=== PATIENT | male | born 1965 | race Two or more races ===

== ENCOUNTER 2018-07-04 09:08 | Emergency (ER) | payer OTHER, MEDICAID ==
[~2018-07-04] VITALS: Ht 180.3 cm; Wt 80.3 kg
[2018-07-04] MEDS ORDERED: [UNRECOGNIZED DRUG - OTHER] (09:35)
[2018-07-04] MEDS ORDERED: ABILIFY2 MG ORAL (09:35)
--- NOTE | 2018-07-04 10:00 | NUR ---
ED Nurse Note:pt. stoped taking his psych meds and c/o hearing voices, no SI present , A/Ox4 ambulatory seen by ER
--- NOTE | 2018-07-04 10:08 | NUR ---
ED Nurse Note:blood and urine sent to labs, personal belongings placed in locker #2
[2018-07-04 10:17] LABS: APPEARANCE,URINE CLEAR; BILIRUBIN, URINE NEGATIVE (NEGATIVE); COLOR,URINE PALE YELLOW; GLUCOSE, URINE (UA) NEGATIVE (NEGATIVE); KETONES,URINE NEGATIVE (NEGATIVE); LEUKOCYTE ESTERASE ,URINE NEGATIVE (NEGATIVE); NITRITE,URINE NEGATIVE (NEGATIVE); PH,URINE 7 (4.5-8.0); PROTEIN,URINE NEGATIVE (NEGATIVE); UROBILINOGEN,URINE 1 MG/DL (0.0-1.0)
[2018-07-04 10:24] LABS: BASOPHILS % (AUTO) 0.8 % (0.0-2.0); EOSINOPHILS % (AUTO) 0.3 % (0.0-3.0); HEMATOCRIT 41.7 % (42.0-52.0); HEMOGLOBIN 14.1 G/DL (14.2-18.0); LYMPHOCYTES % (AUTO) 40.6 % (20.0-45.0); MEAN CORPUSCULAR VOLUME 90 FL (80-99); MONOCYTES % (AUTO) 13.4 % (1.0-10.0); NEUTROPHILS % (AUTO) 44.9 % (45.0-75.0); PLATELET COUNT 134 K/UL (150-450); RED BLOOD COUNT 4.65 M/UL (4.70-6.10); RED CELL DISTRIBUTION WIDTH 12.5 % (11.6-14.8); WHITE BLOOD COUNT 4.1 K/UL (4.8-10.8)
[2018-07-04 10:25] LABS: ANION GAP 10 mmol/L (5-15); BLOOD UREA NITROGEN 11 mg/dL (7-18); CALCIUM 8.7 MG/DL (8.5-10.1); CARBON DIOXIDE 30 MMOL/L (21-32); CHLORIDE 102 MMOL/L (98-107); CREATININE 0.8 MG/DL (0.55-1.30); POTASSIUM 3.4 MMOL/L (3.5-5.1); SODIUM 142 MMOL/L (136-145)
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
[2018-07-04 10:37] LABS: ALANINE AMINOTRANSFERASE 23 U/L (12-78); ALBUMIN 3.8 G/DL (3.4-5.0); ALBUMIN/GLOBULIN RATIO 0.9 (1.0-2.7); ALKALINE PHOSPHATASE 138 U/L (46-116); ASPARTATE AMINO TRANSFERASE 28 U/L (15-37); BILIRUBIN,TOTAL 0.6 MG/DL (0.2-1.0)
[2018-07-04 10:39] VITALS: BP 152/93
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
[2018-07-04] MEDS ORDERED: LORazepam 1mg tab ORAL ONE (12:30)
--- NOTE | 2018-07-04 12:45 | NUR ---
ELOPEMENT: pt. refused to wate for psychiatric evaluation and placement and eloped without notifying nurse, ER MD is awaire , pt. is A/ox4 ambulatory with steady gait he took all of his personal belongings with him
[2018-07-04 14:26] VITALS: BP 152/93
== END 2018-07-04 14:30 | disposition left against medical advice (07) ==
LOC: EMR 10:10
DX: F23 Brief psychotic disorder (principal); F31.9 Bipolar disorder, unspecified; B20 Human immunodeficiency virus [HIV] disease; Z88.0 Allergy status to penicillin
CPT/HCPCS: 36415; 80053; 80307; 81003; 84443; 85025; 99284; G0480; 80329